=== PATIENT | female | born 1950 | race Caucasian/White ===

== ENCOUNTER → 2016-12-09 | Outpatient (CLI) | payer OTHER ==
[~2016-12-09] MED LIST: ASPI-496 PO; ATOR10TA9 PO; CALC-46 PO; CARV12.543 PO; GABA100C PO; MULT-6 PO; RAMI2.5C PO; TRAM-47 PO
== END | disposition home or self-care (01) ==
LOC: CFH 12:59
PROVIDERS: ATTEND Internal Medicine Cardiovascular Disease
DX: I08.1 Rheumatic disorders of both mitral and tricuspid valves (principal); I42.9 Cardiomyopathy, unspecified; Z95.0 Presence of cardiac pacemaker
CPT/HCPCS: 93306

== ENCOUNTER → 2017-05-15 | Outpatient (CLI) | payer OTHER | END | disposition home or self-care (01) | LOC: CFH 12:43 | PROVIDERS: ATTEND Nurse Practitioner | DX: Z12.31 Encounter for screening mammogram for malignant neoplasm of breast (principal) | CPT/HCPCS: 77063; 77067 ==

== ENCOUNTER → 2018-05-25 | Outpatient (CLI) | payer MEDICARE ==
[~2018-05-25] MED LIST changes: -RAMI2.5C PO; +RAMI2.5C2 PO
== END | disposition home or self-care (01) ==
LOC: CFH 14:07
PROVIDERS: ATTEND Nurse Practitioner
DX: Z12.31 Encounter for screening mammogram for malignant neoplasm of breast (principal)
CPT/HCPCS: 77063; 77067

== ENCOUNTER 2018-08-18 02:22 | Emergency (ER) | payer MEDICARE ==
[~2018-08-18] VITALS: Ht 160 cm; Wt 71.9 kg
[2018-08-18 02:24] VITALS: BP 123/71
[2018-08-18] MEDS ORDERED: DIAZEPAM 5 MG TABLET ONE (02:46)
[2018-08-18] MEDS ORDERED: KETOROLAC 30 MG/1 ML ONE (02:46)
--- NOTE | 2018-08-18 02:50 | NUR ---
PT MEDICATED PER EMAR FOR PAIN. SPO2 MONITORING IN PLACE.
[2018-08-18] MEDS ORDERED: BUPIVACAINE/PF 0.5% INFIL ONE (03:00)
[2018-08-18] MEDS ORDERED: DIAZEPAM 5 MG TABLET PO ONE (03:00)
[2018-08-18] MEDS ORDERED: KETOROLAC 30 MG/1 ML IM ONE (03:00)
[2018-08-18] MEDS ORDERED: TRIAMCINOLONE ACETONIDE 40 MG/ML, 1ML IM ONE (03:00)
--- NOTE | 2018-08-18 03:47 | NUR ---
PT REPORTS IMPROVEMENT IN PAIN WITH MEDICATIONS/INJECTION. ERP AWARE
--- NOTE | 2018-08-18 04:22 | NUR ---
RA SPO2 >90%. PT REPORTS CONTINUED IMPROVEMENT IN S/S. DC EDUCATION PROVIDED, PT DEMONSTRATES UNDERSTANDING. PT AMBULATED STEADILY TO DC WITH RN
== END 2018-08-18 04:25 | disposition home or self-care (01) ==
LOC: ED 04:21
DX: S16.1XXA Strain of muscle, fascia and tendon at neck level, initial encounter (principal); G24.3 Spasmodic torticollis; M79.18 Myalgia, other site; I50.9 Heart failure, unspecified; Z95.0 Presence of cardiac pacemaker; Z87.891 Personal history of nicotine dependence; X58.XXXA Exposure to other specified factors, initial encounter; Y93.89 Activity, other specified; Y92.89 Other specified places as the place of occurrence of the external cause; Y99.8 Other external cause status
CPT/HCPCS: 20553; 96372; 99284; J1885

== ENCOUNTER → 2018-08-24 | Outpatient (CLI) | payer MEDICARE | END | disposition home or self-care (01) | LOC: CVU 09:39 | PROVIDERS: ATTEND Internal Medicine Cardiovascular Disease | DX: I34.0 Nonrheumatic mitral (valve) insufficiency (principal); I42.9 Cardiomyopathy, unspecified | CPT/HCPCS: 0399T; 93306 ==

== ENCOUNTER → 2019-02-16 | Outpatient (CLI) | payer MEDICARE ==
[~2019-02-16] MED LIST changes: +CARV3.122 PO; +CHOL10003 PO; +IBAN150T15 PO; +LEVO50TA5 PO; +MULT-658 PO; +SOTA120T26 PO
== END | disposition home or self-care (01) ==
LOC: CFH 08:20
PROVIDERS: ATTEND Nurse Practitioner
DX: I42.9 Cardiomyopathy, unspecified (principal)
CPT/HCPCS: 71046

== ENCOUNTER 2019-02-17 07:49 | Day surgery (SDC) | payer MEDICARE ==
[~2019-02-17] VITALS: Ht 160 cm; Wt 63.6 kg
[~2019-02-17 07:49] MED LIST changes: -CARV3.122 PO; -CHOL10003 PO; -IBAN150T15 PO; -LEVO50TA5 PO; -MULT-658 PO; -SOTA120T26 PO
[2019-02-17] MEDS ORDERED: SODIUM CHLORIDE 0.9% 1,000 ML IV SCH (08:24)
[2019-02-17] MEDS ORDERED: CARV3.122 PO (08:37)
[2019-02-17] MEDS ORDERED: SOTA120T26 PO (08:37)
[2019-02-17] MEDS ORDERED: LEVO50TA5 PO (08:37)
[2019-02-17] MEDS ORDERED: MULT-658 PO (08:37)
[2019-02-17] MEDS ORDERED: IBAN150T15 PO (08:37)
[2019-02-17] MEDS ORDERED: CHOL10003 PO (08:37)
[2019-02-17 08:38] VITALS: BP_SYST 119
[2019-02-17] MEDS ORDERED: PROPOFOL 10 MG/ML, 20ML ONE (09:15)
[2019-02-17] MEDS ORDERED: TEMPLATE NON-FORMULARY MED. (Ibandronate Sodium** (Boniva**) 1 TAB) PO SCH (10:00)
[2019-02-17] MEDS ORDERED: SOTALOL 120MG TABLET PO SCH (21:00)
[2019-02-17] MEDS ORDERED: RAMIPRIL 2.5 MG CAPSULE PO SCH (21:00)
[2019-02-17] MEDS ORDERED: CARVEDILOL 3.125 MG TABLET PO SCH (21:00)
[2019-02-18] MEDS ORDERED: ASPIRIN 81 MG TABLET EC PO SCH (09:00)
[2019-02-18] MEDS ORDERED: CHOLECALCIFEROL 1,000 UNIT TABLET PO SCH (09:00)
[2019-02-18] MEDS ORDERED: MULTIVITAMIN 1 TABLET PO SCH (09:00)
[2019-02-18] MEDS ORDERED: LEVOTHYROXINE 50 MCG TABLET PO SCH (09:00)
[2019-02-18] MEDS ORDERED: ATORVASTATIN 10 MG TABLET PO SCH (09:00)
== END 2019-02-17 10:42 | disposition home or self-care (01) ==
LOC: CACL 07:49
PROVIDERS: ATTEND Internal Medicine Cardiovascular Disease
DX: I47.2 Ventricular tachycardia (principal); I25.5 Ischemic cardiomyopathy; Z79.1 Long term (current) use of non-steroidal anti-inflammatories (NSAID); Z79.890 Hormone replacement therapy; Z79.82 Long term (current) use of aspirin; Z79.899 Other long term (current) drug therapy
CPT/HCPCS: 93005; 93642; J2704

== ENCOUNTER → 2019-03-04 | Outpatient (CLI) | payer MEDICARE ==
[~2019-03-04] MED LIST changes: +CARV3.122 PO; +CHOL10003 PO; +IBAN150T15 PO; +LEVO50TA5 PO; +MULT-658 PO; +SOTA120T26 PO
== END | disposition home or self-care (01) ==
LOC: CFH 08:33
PROVIDERS: ATTEND Licensed Practical Nurse
DX: M85.9 Disorder of bone density and structure, unspecified (principal); N95.9 Unspecified menopausal and perimenopausal disorder
CPT/HCPCS: 77080

== ENCOUNTER → 2019-04-02 | Outpatient (CLI) | payer MEDICARE ==
[~2019-04-02] MED LIST changes: +REGADENOSON 0.4 MG/5 ML SYRINGE ONE
== END | disposition home or self-care (01) ==
LOC: CFH 08:02
PROVIDERS: ATTEND Internal Medicine Cardiovascular Disease
DX: I21.19 ST elevation (STEMI) myocardial infarction involving other coronary artery of inferior wall (principal); I25.9 Chronic ischemic heart disease, unspecified
CPT/HCPCS: 78452; 93017; A9502; J2785; 93642

== ENCOUNTER 2019-04-30 08:04 | Observation (INO) | payer MEDICARE ==
[~2019-04-30] VITALS: Ht 162.6 cm; Wt 68.3 kg
[~2019-04-30 08:04] MED LIST changes: -REGADENOSON 0.4 MG/5 ML SYRINGE ONE
[2019-04-30] MEDS ORDERED: ASPIRIN 325 MG TABLET EC PO ONE (08:30)
[2019-04-30 08:35] VITALS: BP 110/62
[2019-04-30] MEDS ORDERED: FENTANYL PF 100 MCG/2ML ONE (10:48)
[2019-04-30] MEDS ORDERED: MIDAZOLAM 1 MG/ML, 5ML ONE (10:48)
[2019-04-30] MEDS ORDERED: TICAGRELOR 90 MG TABLET ONE (10:48)
[2019-04-30] MEDS ORDERED: BIVALIRUDIN 250 MG ONE (10:48)
[2019-04-30] MEDS ORDERED: VERAPAMIL 2.5 MG/ML, 2ML ONE (10:48)
[2019-04-30] MEDS ORDERED: LIDOCAINE-MPF 1%, 5ML ONE (10:48)
[2019-04-30] MEDS ORDERED: SODIUM CHLORIDE 0.9% 1,000 ML IV SCH (11:00)
[2019-04-30 14:16] VITALS: BP 141/68
[2019-04-30] MEDS ORDERED: DEXTROSE 50%, 50ML SYRINGE ONE (14:59)
[2019-04-30] MEDS ORDERED: DEXTROSE 4 GM TAB.CHEW PO PRN (15:00)
[2019-04-30] MEDS ORDERED: DEXTROSE 50%, 50ML SYRINGE IVPush PRN (15:00)
[2019-04-30] MEDS ORDERED: GLUCAGON 1 MG IM PRN (15:00)
[2019-04-30] MEDS ORDERED: ONDANSETRON 2MG/ML, 2ML IVPush PRN (15:30)
[2019-04-30 18:32] LABS: MICROSCOPIC AUTO
[2019-04-30 18:35] LABS: CULTURE INDICATED? YES
[2019-04-30 20:07] VITALS: BP 106/69
[2019-04-30] MEDS: ACETAMINOPHEN 325 MG TABLET PO PRN (20:39)
[2019-04-30] MEDS: RAMIPRIL 2.5 MG CAPSULE PO SCH (20:39)
[2019-04-30] MEDS: CARVEDILOL 3.125 MG TABLET PO SCH (20:39)
[2019-04-30] MEDS: SOTALOL 120MG TABLET PO SCH (20:39)
[2019-04-30] MEDS: SODIUM CHLORIDE FLUSH 10ML SYR IVF SCH (20:40)
[2019-05-01 01:29] VITALS: BP 94/60
[2019-05-01] MEDS: ACETAMINOPHEN 325 MG TABLET PO PRN (04:28)
[2019-05-01 04:58] LABS: BASOPHILS # (AUTO) 0.03 x10^3/uL (0-0.1); BASOPHILS % (AUTO) 0 % (0-1); EOSINOPHILS # (AUTO) 0.11 x10^3/uL (0-0.4); EOSINOPHILS % (AUTO) 1 % (1-7); LYMPHOCYTES # (AUTO) 2.62 x10^3/uL (1-3.4); LYMPHOCYTES % (AUTO) 34 % (22-44); MD NO; MEAN CORPUSCULAR HGB CONC 33.7 g/dL (32.4-35.8); MEAN CORPUSCULAR VOLUME 92.2 fL (80-100); MEAN PLATELET VOLUME 8.3 fL (7.4-10.4); MONOCYTES # (AUTO) 0.74 x10^3/uL (0.2-0.8); MONOCYTES % (AUTO) 10 % (2-9); NEUTROPHILS # (AUTO) 4.28 x10^3/uL (1.8-6.8); NEUTROPHILS % (AUTO) 55 % (42-75); PLATELET COUNT 243 x10^3/uL (130-400); RED BLOOD COUNT 4.33 x10^6/uL (3.82-5.3); RED CELL DISTRIBUTION WIDTH 14.1 % (9.6-15.2)
[2019-05-01 05:11] LABS: CHLORIDE 114 mmol/L (98-107)
[2019-05-01 05:20] LABS: ALANINE AMINOTRANSFERASE 29 U/L (12-78); ALBUMIN 3.5 g/dL (3.4-5.0); ALKALINE PHOSPHATASE 78 U/L (45-117); BILIRUBIN,TOTAL 0.7 mg/dL (0.2-1.0); CALCIUM 9.1 mg/dL (8.5-10.1); CHOL/HDL RATIO 2.4; CHOLESTEROL, TOTAL 118 mg/dL (140-239); CREATININE 1.03 mg/dL (0.55-1.02); HDL CHOL % 42 % (28-40); HDL CHOLESTEROL (DIRECT) 49 mg/dL (40-60); LDL CHOLESTEROL,CALCULATED 51 mg/dL (54-169); TOTAL PROTEIN 6.9 g/dL (6.4-8.2); TRIGLYCERIDES 89 mg/dL (50-200); VLDL CHOLESTEROL 18 mg/dL (0-25)
[2019-05-01 05:52] LABS: ANION GAP 8 mmol/L (5-15)
[2019-05-01] MEDS ORDERED: LEVOTHYROXINE 50 MCG TABLET PO SCH (06:00)
[2019-05-01 06:28] VITALS: BP 97/63
[2019-05-01] MEDS ORDERED: CHOLECALCIFEROL 1,000 UNIT TABLET PO SCH (09:00)
[2019-05-01] MEDS ORDERED: LEVOFLOXACIN 250 MG TABLET PO SCH (09:00)
[2019-05-01] MEDS ORDERED: ASPIRIN 81 MG TABLET EC PO SCH ×2 (09:00)
[2019-05-01] MEDS: SODIUM CHLORIDE FLUSH 10ML SYR IVF SCH (09:00)
[2019-05-01] MEDS ORDERED: MULTIVITAMIN 1 TABLET PO SCH (09:00)
[2019-05-01] MEDS ORDERED: ATORVASTATIN 10 MG TABLET PO SCH (09:00)
[2019-05-01] MEDS ORDERED: OXYcodone/APAP 7.5/325MG TABLET PO ONE (09:00)
[2019-05-01] MEDS: RAMIPRIL 2.5 MG CAPSULE PO SCH (09:03)
[2019-05-01] MEDS: SOTALOL 120MG TABLET PO SCH (09:03)
[2019-05-01] MEDS: CARVEDILOL 3.125 MG TABLET PO SCH (09:04)
[2019-05-01] MEDS ORDERED: OMNIPAQUE 350 MG/ML, 100ML BOTTLE ONE (12:57)
[2019-05-01 14:00] VITALS: BP 104/64
[2019-05-01] MEDS ORDERED: LEVO500T47 PO (14:56)
== END 2019-05-01 16:50 | disposition home or self-care (01) ==
LOC: CACL 08:04 → 5SO 14:47 → CACL 15:18 → DCLOUNGE 05-01 16:34
PROVIDERS: ADMIT Internal Medicine Cardiovascular Disease; ATTEND Internal Medicine Cardiovascular Disease
DX: I47.2 Ventricular tachycardia (principal); I42.9 Cardiomyopathy, unspecified; I25.10 Atherosclerotic heart disease of native coronary artery without angina pectoris; E03.9 Hypothyroidism, unspecified; Z87.891 Personal history of nicotine dependence; N39.0 Urinary tract infection, site not specified; Z79.82 Long term (current) use of aspirin
CPT/HCPCS: 36415; 70496; 70498; 71046; 80053; 80061; 81001; 82962; 83880; 85025; 87086; 93458; 96374; 97161; 99156; C1769; C1894; G0378; J0583; J2250; J3010; Q9967

== ENCOUNTER → 2020-02-29 | Outpatient (CLI) | payer MEDICARE ==
[~2020-02-29] MED LIST changes: +LEVO500T47 PO
== END | disposition home or self-care (01) ==
LOC: WOUND 08:30
PROVIDERS: ATTEND Nurse Practitioner Family
DX: T81.32XA Disruption of internal operation (surgical) wound, not elsewhere classified, initial encounter (principal); I11.0 Hypertensive heart disease with heart failure; I50.9 Heart failure, unspecified; E03.9 Hypothyroidism, unspecified; J45.909 Unspecified asthma, uncomplicated; M85.80 Other specified disorders of bone density and structure, unspecified site; Z95.0 Presence of cardiac pacemaker; Z86.006 Personal history of melanoma in-situ; Y83.8 Other surgical procedures as the cause of abnormal reaction of the patient, or of later complication, without mention of misadventure at the time of the procedure; Y92.238 Other place in hospital as the place of occurrence of the external cause
CPT/HCPCS: 97597; G0463

== ENCOUNTER → 2020-03-07 | Outpatient (CLI) | payer MEDICARE | END | disposition home or self-care (01) | LOC: WOUND 09:25 | PROVIDERS: ATTEND Nurse Practitioner Family | DX: T81.32XD Disruption of internal operation (surgical) wound, not elsewhere classified, subsequent encounter (principal); I11.0 Hypertensive heart disease with heart failure; I50.9 Heart failure, unspecified; E03.9 Hypothyroidism, unspecified; J45.909 Unspecified asthma, uncomplicated; M85.80 Other specified disorders of bone density and structure, unspecified site; Z95.0 Presence of cardiac pacemaker; Z86.006 Personal history of melanoma in-situ; Y83.8 Other surgical procedures as the cause of abnormal reaction of the patient, or of later complication, without mention of misadventure at the time of the procedure | CPT/HCPCS: 97597 ==

== ENCOUNTER 2020-03-14 09:37 | Outpatient (CLI) | payer MEDICARE | END 2020-03-14 23:59 | disposition home or self-care (01) | LOC: WOUND 09:37 | PROVIDERS: ATTEND Nurse Practitioner Family | DX: T81.32XD Disruption of internal operation (surgical) wound, not elsewhere classified, subsequent encounter (principal); I11.0 Hypertensive heart disease with heart failure; I50.9 Heart failure, unspecified; E03.9 Hypothyroidism, unspecified; J45.909 Unspecified asthma, uncomplicated; M85.80 Other specified disorders of bone density and structure, unspecified site; Z95.0 Presence of cardiac pacemaker; Z86.006 Personal history of melanoma in-situ; Y83.8 Other surgical procedures as the cause of abnormal reaction of the patient, or of later complication, without mention of misadventure at the time of the procedure | CPT/HCPCS: 97597 ==

== ENCOUNTER → 2020-03-21 | Outpatient (CLI) | payer MEDICARE | END | disposition home or self-care (01) | LOC: WOUND 08:03 | PROVIDERS: ATTEND Nurse Practitioner Family | DX: T81.32XD Disruption of internal operation (surgical) wound, not elsewhere classified, subsequent encounter (principal); I11.0 Hypertensive heart disease with heart failure; I50.9 Heart failure, unspecified; E03.9 Hypothyroidism, unspecified; J45.909 Unspecified asthma, uncomplicated; M85.80 Other specified disorders of bone density and structure, unspecified site; Z95.0 Presence of cardiac pacemaker; Z86.006 Personal history of melanoma in-situ; Y83.8 Other surgical procedures as the cause of abnormal reaction of the patient, or of later complication, without mention of misadventure at the time of the procedure | CPT/HCPCS: 97597 ==

== ENCOUNTER → 2020-03-28 | Outpatient (CLI) | payer MEDICARE | END | disposition home or self-care (01) | LOC: WOUND 08:55 | PROVIDERS: ATTEND Nurse Practitioner Family | DX: T81.32XD Disruption of internal operation (surgical) wound, not elsewhere classified, subsequent encounter (principal); I11.0 Hypertensive heart disease with heart failure; I50.9 Heart failure, unspecified; E03.9 Hypothyroidism, unspecified; J45.909 Unspecified asthma, uncomplicated; M85.80 Other specified disorders of bone density and structure, unspecified site; Z95.0 Presence of cardiac pacemaker; Z86.006 Personal history of melanoma in-situ; Y83.8 Other surgical procedures as the cause of abnormal reaction of the patient, or of later complication, without mention of misadventure at the time of the procedure | CPT/HCPCS: 97597 ==

== ENCOUNTER 2020-04-04 08:03 | Outpatient (CLI) | payer MEDICARE ==
[~2020-04-04 08:03] MED LIST changes: -RAMI2.5C2 PO; +RAMI2.5C49 PO
== END 2020-04-04 23:59 | disposition home or self-care (01) ==
LOC: WOUND 08:03
PROVIDERS: ATTEND Nurse Practitioner Family
DX: T81.32XD Disruption of internal operation (surgical) wound, not elsewhere classified, subsequent encounter (principal); L97.211 Non-pressure chronic ulcer of right calf limited to breakdown of skin; I11.0 Hypertensive heart disease with heart failure; I50.9 Heart failure, unspecified; E03.9 Hypothyroidism, unspecified; J45.909 Unspecified asthma, uncomplicated; M85.80 Other specified disorders of bone density and structure, unspecified site; Z95.0 Presence of cardiac pacemaker; Z86.006 Personal history of melanoma in-situ; Y83.8 Other surgical procedures as the cause of abnormal reaction of the patient, or of later complication, without mention of misadventure at the time of the procedure
CPT/HCPCS: G0463

== ENCOUNTER → 2020-04-11 | Outpatient (CLI) | payer MEDICARE | END | disposition home or self-care (01) | LOC: WOUND 09:00 | PROVIDERS: ATTEND Nurse Practitioner Family | DX: T81.32XD Disruption of internal operation (surgical) wound, not elsewhere classified, subsequent encounter (principal); I11.0 Hypertensive heart disease with heart failure; I50.9 Heart failure, unspecified; E03.9 Hypothyroidism, unspecified; J45.909 Unspecified asthma, uncomplicated; M85.80 Other specified disorders of bone density and structure, unspecified site; Z95.0 Presence of cardiac pacemaker; Z86.006 Personal history of melanoma in-situ; Y83.8 Other surgical procedures as the cause of abnormal reaction of the patient, or of later complication, without mention of misadventure at the time of the procedure | CPT/HCPCS: G0463 ==

== ENCOUNTER 2020-09-03 13:41 | Observation (INO) | payer MEDICARE ==
[~2020-09-03] VITALS: Ht 162.6 cm; Wt 69.2 kg
--- NOTE | 2020-09-03 13:53 | NUR ---
PATIENT BROUGHT BACK FROM TRIAGE TO TRAUMA 4 DUE TO CONFUSION THAT STARTED THIS MORNING, ERMD DID NOT WANT CODE NEURO CALLED. PATIENT A&O3, KNOWS NAME AND , WHERE SHE IS BUT NOT WHY SHE IS HERE. PER FAMILY MEMBERS PATIENT HAS BEEN NAUSEATED AND LIGHTHEADED X2 WEEKS IN THE MORNING. PATIENT HAS HISTORY OF SIMILAR EPISODE LAST APRIL. PATIENT HAS EQUAL USER INTERFACE DEVELOPER STRENGTH AND NO FOCAL DEFECITS, CONNECTED TO MONITOR, VSS, BLOOD SUGAR AND EKG DONE AT BEDSIDE.
[2020-09-03] MEDS ORDERED: SODIUM CHLORIDE FLUSH 10ML SYR IVF ONE (14:00)
--- NOTE | 2020-09-03 14:01 | NUR ---
PATIENT TO CT SCAN.
[2020-09-03 14:12] LABS: BASOPHILS % (AUTO) 0 % (0-1); EOSINOPHILS % (AUTO) 1 % (1-7); LYMPHOCYTES % (AUTO) 8 % (22-44); MEAN CORPUSCULAR HGB CONC 33.5 g/dL (32.4-35.8); MEAN PLATELET VOLUME 7.7 fL (7.4-10.4); MONOCYTES % (AUTO) 5 % (2-9); NEUTROPHILS % (AUTO) 86 % (42-75); PLATELET COUNT 334 x10^3/uL (130-400); RED BLOOD COUNT 5.25 x10^6/uL (3.82-5.3); RED CELL DISTRIBUTION WIDTH 14.2 % (9.6-15.2)
[2020-09-03 14:23] LABS: ALANINE AMINOTRANSFERASE 28 U/L (12-78); ALBUMIN 4.3 g/dL (3.4-5.0); ANION GAP 7 mmol/L (5-15); CALCIUM 9.8 mg/dL (8.5-10.1); CHLORIDE 111 mmol/L (98-107); CREATININE 1.04 mg/dL (0.55-1.02)
[2020-09-03 14:25] LABS: ALKALINE PHOSPHATASE 117 U/L (45-117); BILIRUBIN,TOTAL 0.9 mg/dL (0.2-1.0); TOTAL PROTEIN 9.3 g/dL (6.4-8.2)
--- NOTE | 2020-09-03 14:57 | NUR ---
URINE COLLECTED VIA STRAIGHT CATH, PATIENT TOLERATED WELL, CONNECTED TO MONITORS, VSS, NADN, DENIES PAIN, SIDE RAILS UP X2, SIGNIFICANT OTHER AND DAUGHTER AT BEDSIDE.
[2020-09-03 15:14] LABS: MICROSCOPIC NOT IND
[2020-09-03 15:26] LABS: AMPHETAMINE SCREEN, URINE Negative (Negative); BARBITURATE SCREEN, URINE Negative (Negative); BENZODIAZEPINE SCREEN, URINE Negative (Negative); CANNABINOID SCREEN, URINE Negative (Negative); COCAINE SCREEN, URINE Negative (Negative); METHADONE SCREEN, URINE Negative (Negative); OPIATE SCREEN, URINE Negative (Negative)
--- NOTE | 2020-09-03 15:54 | NUR ---
ERMD AT BEDSIDE TO DISCUSS POC. 500 NS BOLUS HUNG.
[2020-09-03] MEDS ORDERED: SODIUM CHLORIDE 0.9%, 500ML IVBOLUS ONE (16:00)
--- NOTE | 2020-09-03 16:10 | NUR ---
PATIENT HAD BM, CLEANED UP, PATIENT TOLERATED WELL, SIDE RAILS UP X2, CALL LIGHT WITHIN REACH, FAMILY AT BEDSIDE, NO FURTHER NEEDS AT THIS TIME.
--- NOTE | 2020-09-03 16:28 | NUR ---
[facility] AT BEDSIDE FOR EVALUATION.
[2020-09-03] MEDS: LACTATED RINGERS 1,000 ML IV SCH (16:59)
[2020-09-03] MEDS ORDERED: ONDANSETRON 2MG/ML, 2ML IVPush PRN (17:00)
[2020-09-03] MEDS ORDERED: ACETAMINOPHEN 325 MG TABLET PO PRN (17:00)
[2020-09-03] MEDS ORDERED: ENALAPRILAT 1.25 MG/ML, 2ML IVPush PRN (17:00)
--- NOTE | 2020-09-03 17:14 | NUR ---
PATIENT PASSED SWALLOW EVAL, CONNECTED TO MONITOR, VSS, FAMILY AT BEDSIDE, SIDE RAILS UP X2, CALL LIGHT WITHIN REACH.
--- NOTE | 2020-09-03 17:21 | NUR ---
REPORT GIVEN TO DAVION GOMEZ FOR TRANSFER OF PATIENT CARE.
--- NOTE | 2020-09-03 17:41 | NUR ---
PATIENT TRANSFERRED IN STABLE CONDITION VIA GURNEY WITH LIGHTING FIXTURE INSTALLER, ALL PATIENT BELONGING TAKEN TO FLOOR WITH PATIENT, DAUGHTER AND SPOUSE ACCOMPANIED PATIENT UPSTAIRS.
[2020-09-03 19:26] VITALS: BP 111/74
[2020-09-03 20:00] VITALS: BP 102/65
[2020-09-03] MEDS: SOTALOL 120MG TABLET PO SCH (20:27)
[2020-09-03] MEDS: CARVEDILOL 3.125 MG TABLET PO SCH (20:27)
[2020-09-03] MEDS: RAMIPRIL 2.5 MG CAPSULE PO SCH (20:27)
[2020-09-03 21:44] LABS: CLOSTRIDIUM DIFFICILE ANTIGEN NEGATIVE; CLOSTRIDIUM DIFFICILE TOXIN NEGATIVE (Negative)
[2020-09-04] VITALS (9 sets, daily range): BP systolic 76–120; BP diastolic 45–76
[2020-09-04 04:36] LABS: BASOPHILS % (AUTO) 0 % (0-1); EOSINOPHILS % (AUTO) 1 % (1-7); LYMPHOCYTES % (AUTO) 19 % (22-44); MEAN CORPUSCULAR HEMOGLOBIN 31.8 pg (27.0-34.8); MEAN CORPUSCULAR HGB CONC 34.7 g/dL (32.4-35.8); MEAN PLATELET VOLUME 7.7 fL (7.4-10.4); MONOCYTES % (AUTO) 6 % (2-9); NEUTROPHILS % (AUTO) 74 % (42-75); PLATELET COUNT 245 x10^3/uL (130-400); RED BLOOD COUNT 4.22 x10^6/uL (3.82-5.3); RED CELL DISTRIBUTION WIDTH 14.1 % (9.6-15.2)
[2020-09-04 04:48] LABS: ALANINE AMINOTRANSFERASE 22 U/L (12-78); ALBUMIN 3.1 g/dL (3.4-5.0); ANION GAP 6 mmol/L (5-15); CALCIUM 8.1 mg/dL (8.5-10.1); CHLORIDE 113 mmol/L (98-107); CREATININE 0.88 mg/dL (0.55-1.02)
[2020-09-04 04:50] LABS: ALKALINE PHOSPHATASE 83 U/L (45-117); BILIRUBIN,TOTAL 0.7 mg/dL (0.2-1.0); TOTAL PROTEIN 6.9 g/dL (6.4-8.2)
[2020-09-04] MEDS: LACTATED RINGERS 1,000 ML IV SCH (05:26)
[2020-09-04] MEDS ORDERED: LEVOTHYROXINE 50 MCG TABLET PO SCH (06:00)
[2020-09-04] MEDS: RAMIPRIL 2.5 MG CAPSULE PO SCH (08:06)
[2020-09-04] MEDS: SOTALOL 120MG TABLET PO SCH (08:06)
[2020-09-04] MEDS: CARVEDILOL 3.125 MG TABLET PO SCH (08:06)
[2020-09-04] MEDS ORDERED: CHOLECALCIFEROL 1,000 UNIT TABLET PO SCH (09:00)
[2020-09-04] MEDS ORDERED: ASPIRIN 81 MG TABLET EC PO SCH (09:00)
[2020-09-04] MEDS ORDERED: ATORVASTATIN 20 MG TABLET PO SCH (09:00)
[2020-09-29] MEDS ORDERED: IBANDRONATE SODIUM PO SCH (17:00)
== END 2020-09-04 15:57 | disposition home or self-care (01) ==
LOC: ED 14:13 → EDIP 15:57 → INTOOBSV 15:57 → SUATTDRO 16:04 → 4WST 17:41 → DCLOUNGE 09-04 15:49
PROVIDERS: ADMIT Internal Medicine Infectious Disease; ATTEND Hospitalist
DX: G93.41 Metabolic encephalopathy (principal); E86.0 Dehydration; D72.829 Elevated white blood cell count, unspecified; I42.9 Cardiomyopathy, unspecified; I50.9 Heart failure, unspecified; R11.10 Vomiting, unspecified; E03.9 Hypothyroidism, unspecified; Z86.39 Personal history of other endocrine, nutritional and metabolic disease; Z87.891 Personal history of nicotine dependence; Z79.82 Long term (current) use of aspirin; Z79.899 Other long term (current) drug therapy; Z95.810 Presence of automatic (implantable) cardiac defibrillator
CPT/HCPCS: 36415; 70450; 71045; 80053; 80307; 80320; 81003; 82962; 83036; 83605; 83735; 84443; 85025; 87046; 87324; 87427; 93005; 96361; 96374; 97161; 97165; 99285; G0378; J2405; J7040; J7120; 96360; G0480

== ENCOUNTER 2020-11-09 13:30 | Outpatient (CLI) | payer MEDICARE | END 2020-11-09 23:59 | disposition home or self-care (01) | LOC: CFH 13:30 | PROVIDERS: ATTEND Internal Medicine Cardiovascular Disease | DX: I08.8 Other rheumatic multiple valve diseases (principal); I42.9 Cardiomyopathy, unspecified | CPT/HCPCS: 93306 ==